=== PATIENT | female | born 1980 | race African-American/Black ===

== ENCOUNTER 2023-04-14 09:02 | Day surgery (SDC) | payer BC ==
[2023-04-06 09:19] VITALS: BMI 37.1
[2023-04-14] MEDS ORDERED: LIDOCAINE HCL/PF 2% SDV 5ML VIAL ONE (11:06)
[2023-04-14] MEDS ORDERED: MIDAZOLAM HCL 2 MG/2 ML SINGLE DOSE VIAL ONE (11:06)
[2023-04-14] MEDS ORDERED: ceFAZolin SODIUM 1 GM VIAL ONE (11:07)
[2023-04-14] MEDS ORDERED: DEXAMETHASONE SOD PHOSPHATE 4 MG/1 ML VIAL ONE (11:07)
[2023-04-14] MEDS ORDERED: ONDANSETRON 4 MG/2 ML VIAL ONE ×2 (11:07→13:02)
[2023-04-14] MEDS ORDERED: PROPOFOL 20 ML ONE (11:07)
[2023-04-14] MEDS ORDERED: BUPIVACAINE HCL/PF 0.5% (5MG/ML) 10 ML VIAL ONE (11:11)
[2023-04-14] MEDS ORDERED: ONDANSETRON 4 MG/2 ML VIAL IVPUSH PRN (11:19)
[2023-04-14] MEDS ORDERED: oxyCODONE HCL 5 MG TABLET PO PRN ×2 (11:19)
[2023-04-14] MEDS ORDERED: LACTATED RINGERS SOLUTION 1,000 ML IV SCH (11:30)
[2023-04-14] MEDS ORDERED: KETOROLAC TROMETHAMINE 30 MG/1 ML VIAL ONE (12:00)
[2023-04-14] MEDS ORDERED: BUPIVACAINE HCL/PF 0.5% (5MG/ML) 10 ML VIAL IJ ONE (12:06)
[2023-04-14] MEDS ORDERED: FENTANYL CITRATE/PF 50 MCG/ML VIAL ONE ×3 (12:20→13:02)
[2023-04-14] MEDS ORDERED: ACETAMINOPHEN 1000 MG/100 ML BAG IVPB ONE (12:30)
[2023-04-14] MEDS ORDERED: oxyCODONE HCL 5 MG TABLET ONE (13:49)
[2023-04-14 14:02] VITALS: TEMP 97.9
[2023-04-14 14:55] VITALS: BP 124/74; PULSE 68; RESP 19
== END 2023-04-14 14:45 | disposition home or self-care (01) ==
LOC: FASU 09:02
PROVIDERS: ATTEND Orthopaedic Surgery
PROC: 0SBD4ZZ Excision of Left Knee Joint, Percutaneous Endoscopic Approach (ICD-10-PCS; 2023-04-14)
PROC: 0SBD4ZZ Excision of Left Knee Joint, Percutaneous Endoscopic Approach (ICD-10-PCS; principal; 2023-04-14 11:52)
DX: S83.282A Other tear of lateral meniscus, current injury, left knee, initial encounter (principal); M25.562 Pain in left knee; M65.862 Other synovitis and tenosynovitis, left lower leg; X58.XXXA Exposure to other specified factors, initial encounter; Y93.9 Activity, unspecified; Y92.9 Unspecified place or not applicable
CPT/HCPCS: 81025; 94760

== ENCOUNTER 2023-10-02 23:01 | Emergency (ER) | payer BC ==
[2023-10-02 23:10] VITALS: BP 144/87; PULSE 105; RESP 20; TEMP 98.6; BMI 37.1
[2023-10-03] MEDS ORDERED: ACETAMINOPHEN 325 MG TABLET (FP) ONE (00:38)
[2023-10-03] MEDS: ACETAMINOPHEN 325 MG TABLET (FP) PO ONE (00:53)
== END 2023-10-03 02:09 | disposition home or self-care (01) ==
LOC: JER 23:01
DX: S80.02XA Contusion of left knee, initial encounter (principal); W01.0XXA Fall on same level from slipping, tripping and stumbling without subsequent striking against object, initial encounter
CPT/HCPCS: 73560-TC-LT-FY; 99283-25